=== PATIENT | female | born 1940 | race Caucasian/White ===

== ENCOUNTER 2016-12-03 12:04 | Outpatient (CLI) | payer MEDICARE, OTHER | END 2016-12-03 12:05 | disposition home or self-care (01) | LOC: LAB.R 12:04 | PROVIDERS: ATTEND Physician Assistant Medical | DX: M54.5 Low back pain (principal); R82.79 Other abnormal findings on microbiological examination of urine | CPT/HCPCS: 87086 ==

== ENCOUNTER 2016-12-10 11:01 | Outpatient (CLI) | payer MEDICARE, OTHER ==
--- NOTE | 2016-12-10 16:45 | MRI Report ---
EXAM: MRI LUMBAR SPINE WITHOUT CONTRAST EXAM DATE: 12/10/2016 11:58 AM. CLINICAL HISTORY: LOW BACK PAIN, CHRONIC. The pain radiates to posterior pelvis and both legs. COMPARISON: Radiograph lumbar spine 03/04/2015 TECHNIQUE: Multiplanar, multisequence T1-weighted and fluid-sensitive sequences of the lumbar spine f rom T12 to S1 without contrast. Other: None. FINDINGS: Spinal Cord: The conus terminates at T12-L1. No signal abnormality in the visualized spinal cord. Alignment: Normal. No scoliosis or spondylolisthesis. Bone Marrow: Five wtw-efi-ehweeea lumbar vertebral bodies are assumed. No gross fractures . A T1 and T2 hypointense lesion is seen within the right aspect of the L5 vertebral body measuring 2.3 cm (for example series 501 image 10, series 701 image 7), corresponding to the sclerotic lesion seen on the p rior radiographs. The appearance is nonspecific, may represent a bone island. Disk Levels/Facets: T12-L1: Unremarkable. L1-L2: Unremarkable. L2-L3: Unremarkable. L3-L4: Mild disk bulge. Minimal bilateral facet arthropathy. No significant central canal or neurofor aminal narrowing. L4-L5: Mild disk height loss and desiccation. Moderate diffuse disk bulge and cheq-xl-rnyfeatb bilate ral facet arthropathy and ligamentum flavum thickening. Mild central canal narrowing. Mild bilateral neuroforaminal narrowing. L5-S1: Mild disk height loss and desiccation. Moderate diffuse disk bulge and moderate bilateral face t arthropathy and ligamentum flavum thickening. Mild central canal narrowing. Mild bilateral neurofor aminal narrowing. Musculature: Normal. No edema or fatty atrophy. Other: There is a 3.8 cm exophytic T2 hyperintense lesion arising from the upper pole of the left kid anisha, likely representing a cyst. The visualized abdominopelvic cavity is otherwise unremarkable. IMPRESSION: 1. Mild multilevel degenerative spondylosis, as detailed above and summarized below. 2. A T1 and T2 hypointense lesion is seen within the right aspect of the L5 vertebral body measuring 2.3 cm (for example series 501 image 10, series 701 image 7). 3. L4-L5 level demonstrates mild central canal narrowing. Mild bilateral neuroforaminal narrowing. 4. L5-S1 level demonstrates mild central canal narrowing. Mild bilateral neuroforaminal narrowing. 5. No significant central canal or neuroforaminal narrowing at remaining lumbar levels. Comment: The following findings are so common in adults without low back pain that while we report th eir presence, they must be interpreted with caution and in the context of the clinical situation. (Re josefina Lincoln et al, Spine 2001) Prevalence of findings in patients without low back pain: Disk degeneration (any evidence): 92% Disk desiccation/T2 signal loss: 83% Disk height loss: 56% Disk bulge: 64% Disk protrusion: 32% Annular tear/high intensity zone: 38% [facility] Referring Provider Line: [phone] SITE ID: [id number]
== END 2016-12-10 11:02 | disposition home or self-care (01) ==
LOC: DI 11:01
PROVIDERS: ATTEND Physician Assistant Medical
DX: M47.896 Other spondylosis, lumbar region (principal); M51.36 Other intervertebral disc degeneration, lumbar region; M51.37 Other intervertebral disc degeneration, lumbosacral region; M47.897 Other spondylosis, lumbosacral region; M89.9 Disorder of bone, unspecified
CPT/HCPCS: 72148

== ENCOUNTER 2017-01-03 14:00 | Outpatient (CLI) | payer MEDICARE, OTHER ==
--- NOTE | 2017-01-04 00:54 | Ultrasound Report ---
EXAM: RENAL ULTRASOUND EXAM DATE: 01/03/2017 04:09 PM. CLINICAL HISTORY: RENAL CYST. Left renal cyst seen on MRI. COMPARISON: Renal ultrasound 12/22/2006. MRI lumbar spine 12/10/2016. TECHNIQUE: Real-time scanning was performed with static images obtained. FINDINGS: Right Kidney: 9.7 x 3.8 x 3.4 cm. 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 Right inferior medial exophytic simple appearing renal cyst that measures 1.5 x 1.2 cm. No hydronephrosis. Left Kidney: 8.4 x 4 x 3.6 cm. Exophytic renal cyst off the lower pole left kidney. This appears sim ple and measures 3.6 x 3.6 x 3.4 cm, measures increased compared to the prior. No hydronephrosis. Bladder: Bilateral jets seen. The prevoid bladder volume was 80.9 cc. The postvoid bladder volume was 3.5 cc. IMPRESSION: 1. Left lower pole exophytic renal cyst which appears simple, measures increased compared to the prio r renal ultrasound. 2. Right inferior medial exophytic simple appearing renal cyst measuring 1.5 cm. Duplicated collectin g system right kidney. [facility] Referring Provider Line: [phone] SITE ID: [id number]
== END 2017-01-03 14:01 | disposition home or self-care (01) ==
LOC: DI 14:00
PROVIDERS: ATTEND Physician Assistant Medical
DX: N28.1 Cyst of kidney, acquired (principal)
CPT/HCPCS: 76770

== ENCOUNTER 2017-09-10 14:42 | Outpatient (CLI) | payer MEDICARE, OTHER ==
--- NOTE | 2017-09-11 10:34 | Ultrasound Report ---
EXAM: CAROTID DOPPLER ULTRASOUND EXAM DATE: 09/10/2017 03:30 PM. CLINICAL HISTORY: Carotid artery stenosis. Right endarterectomy in 2001. COMPARISON: 05/22/2012. TECHNIQUE: Real-time sonographic vascular imaging was performed by the institution librarian through the caroti d arterial system with a linear transducer utilizing color-flow, Doppler flow and spectral analysis. Multiple canvas products sales representative static images were saved for review. FINDINGS: Small amount of smooth calcified plaque in the left greater than right common and proximal internal and external carotid arteries. RIGHT: RCCA PROX: PSV 109 CM/SEC. RCCA DIST: PSV 99 CM/SEC, EDV 21 CM/SEC. RECA: PSV 99 CM/SEC. R BULB: PSV 107 CM/SEC, EDV 20 CM/SEC, ICA/CCA RATIO 1.08. MIS PROX: PSV 77 CM/SEC, EDV 17 CM/SEC, ICA/CCA RATIO 0.78. MIS MID: PSV 87 CM/SEC, EDV 23 CM/SEC, ICA/CCA RATIO 0.88. MIS DIST: PSV 82 CM/SEC, EDV 23 CM/SEC, ICA/CCA RATIO 0.83. RVA: PSV 51 CM/SEC. RVA FLOW DIRECTION: ANTEGRADE. LEFT: LCCA PROX: PSV 91 CM/SEC. LCCA DIST: PSV 85 CM/SEC, EDV 21 CM/SEC. LECA: PSV 95 CM/SEC. L BULB: PSV 77 CM/SEC, EDV 22 CM/SEC, ICA/CCA RATIO 0.91. LICA PROX: PSV 72 CM/SEC, EDV 26 CM/SEC, ICA/CCA RATIO 0.85. LICA MID: PSV 99 CM/SEC, EDV 35 CM/SEC, ICA/CCA RATIO 1.16. LICA DIST: PSV 106 CM/SEC, EDV 29 CM/SEC, ICA/CCA RATIO 1.25. LVA: PSV 53 CM/SEC. LVA FLOW DIRECTION: ANTEGRADE. Other: None. IMPRESSION: No hemodynamically significant stenoses. Validated velocity measurements with angiographic measurements and velocity criteria are extrapolated from diameter data as defined by the Society of Radiologists in Ultrasound Consensus Conference Radi ology 2003; 229;340-346. [facility] Referring Provider Line: [phone] SITE ID: [id number]
== END 2017-09-10 14:43 | disposition home or self-care (01) ==
LOC: DI 14:42
PROVIDERS: ATTEND Physician Assistant Medical
DX: I65.29 Occlusion and stenosis of unspecified carotid artery (principal)
CPT/HCPCS: 93880

== ENCOUNTER 2018-02-28 08:42 | Outpatient (CLI) | payer MEDICARE, OTHER ==
[2018-02-28 12:32] LABS: ALBUMIN 4.1 g/dL (3.2-5.5); ALBUMIN/GLOBULIN RATIO 1.4 (1.0-2.2); ALKALINE PHOSPHATASE 36 IU/L (42-121); ALT ALANINE AMINOTRANSFERASE 17 IU/L (10-60); AST ASPARTATE AMINOTRANSFERASE 20 IU/L (10-42); BILIRUBIN,TOTAL 0.8 mg/dL (0.2-1.0); BUN - BLOOD UREA NITROGEN 25 mg/dL (6-20); CALCIUM 9.2 mg/dL (8.5-10.3); CARBON DIOXIDE - CO2 32 mmol/L (21-32); CHLORIDE 101 mmol/L (101-111); CHOL/HDL RATIO 2.9 (<4.4); CHOLESTEROL 163 mg/dL; GFR - MDRD 54 (>89); GLUCOSE 106 mg/dL (70-100); HDL CHOLESTEROL 56 mg/dL; LDL CHOLESTEROL,CALCULATED 85 mg/dL; LDL/HDL RATIO 1.5 (<4.4); SODIUM 141 mmol/L (135-145); VLDL CHOLESTEROL 22 mg/dL
== END 2018-02-28 08:43 | disposition home or self-care (01) ==
LOC: LAB.WCP 08:42
PROVIDERS: ATTEND Physician Assistant Medical
DX: E78.5 Hyperlipidemia, unspecified (principal)
CPT/HCPCS: 36415; 80053; 80061; 83721

== ENCOUNTER 2018-03-16 10:32 | Outpatient (CLI) | payer MEDICARE, OTHER ==
--- NOTE | 2018-03-17 10:20 | DEXA Report ---
Reason: BONE DESEASE Procedure Date: 03/16/2018 Accession Number: [id number] / [id number] Procedure: DEX - Dexa Spine and/or Hip CPT Code: FULL RESULT: EXAM: Dexa Spine and/or Hip DATE: 03/16/2018 11:10 AM CLINICAL HISTORY: BONE DISEASE TECHNIQUE: Dual energy x-ray absorptiometry (DXA) was performed on a [employer]. Regions measured are the AP Spine, femoral neck, and if needed forearm. COMPARISON: None. In accordance with the International Society for Clinical Densitometry (ISCD) guidelines, data from previous exams may be reanalyzed using current recommendations and techniques. This is done to allow a more accurate basis for comparison with the current study. FINDINGS: The data for the lumbar spine is as follows: BMD (g/cm/cm) T-SCORE Z-SCORE REGION L1 1.207 0.6 3.1 L2 1.187 -0.1 2.3 L3 1.266 0.5 3.0 L4 1.214 0.1 2.5 TOTAL 1.219 0.3 2.7 NOTE: All evaluable vertebrae are used for classification The data for the hip is as follows: BMD (g/cm/cm) T-SCORE Z-SCORE REGION Neck 0.787 -1.8 0.7 TOTAL 0.785 -1.8 0.6 NOTE: The femoral neck or total proximal femur, whichever is lowest, is used for classification. DXA RESULTS SUMMARY: Spine SCAN DATE AGE BMD CHANGE VS CHANGE VS PREVIOUS PREVIOUS % 2/16/2018 [age] 1[age]219 0.003 0.2 02/29/2016 [age] 1.216 * Denotes significant change at the 95% confidence level. Denotes dissimilar scan types or analysis methods. DXA RESULTS SUMMARY: Hip SCAN DATE AGE BMD CHANGE VS CHANGE VS PREVIOUS PREVIOUS % 2/16/2018 [age] 0.785 -0.005 -0.6 02[birth year]26/2016 [age] 0.790 * Denotes significant change at the 95% confidence level. Denotes dissimilar scan types or analysis methods. IMPRESSION: THE WHO CLASSIFICATION BASED ON THE INTERNATIONAL REFERENCE STANDARD IS OSTEOPENIA. THE FRACTURE RISK IS INCREASED. RECOMMENDATION: Patients with diagnosis of osteoporosis or osteopenia should have regular bone mineral density assessment. For those eligible for Medicare, routine testing is allowed once every 2 years. Testing frequency can be increased for patients who have rapidly progressing disease or for those who are receiving medical therapy to restore bone mass. COMMENT: World Health Organization (WHO) definitions for osteoporosis and osteopenia: NORMAL BMD: T-score at -1.0 or higher, fracture risk is low OSTEOPENIA BMD: T-score between -1.0 and -2.5, fracture risk is increased. OSTEOPOROSIS BMD: T-score at -2.5 or lower, fracture risk is high. National Osteoporosis Foundation recommends: 1. Obtain adequate dietary calcium (at least 1200 mg per day) and vitamin D (400-800 international units per day). 2. Participate, as appropriate, in regular weightbearing and muscle-strengthening exercise. 3. Avoid tobacco use and reduce alcohol and caffeine intake. 4. For more detailed information see the website at www.NOF.org.
== END 2018-03-16 10:33 | disposition home or self-care (01) ==
LOC: DI 10:32
PROVIDERS: ATTEND Physician Assistant Medical
DX: M85.88 Other specified disorders of bone density and structure, other site (principal)
CPT/HCPCS: 77080

== ENCOUNTER 2018-10-03 13:02 | Outpatient (CLI) | payer MEDICARE, OTHER ==
--- NOTE | 2018-10-05 14:23 | Ultrasound Report ---
Reason: COLD FEET,HYPERTENSION Procedure Date: 10/03/2018 Accession Number: [id number] / [id number] Procedure: US - Ankle Brachial Index CPT Code: FULL RESULT: EXAM: BILATERAL ANKLE/BRACHIAL INDEX EXAM DATE: 10/03/2018 01:52 PM. CLINICAL HISTORY: Cold feet, hypertension. COMPARISON: None. TECHNIQUE: A blood pressure cuff and pulse volume recording Doppler ultrasound was used to evaluate the arterial pressures in the arms and ankle. No images were acquired. FINDINGS: Brachial pressure: Right brachial artery: 127/59 mmHg Left brachial artery: 129/64 mmHg Right ankle pressures: 137/65 mmHg Dorsalis pedis artery: Monophasic low velocity/7.5 cm/s flow with tardus parvus waveform Posterior tibial artery: Normal velocity 57 cm/s biphasic waveform. Left ankle pressures: 127/53 mmHg Dorsalis pedis artery: Biphasic waveform, 26 cm/s Posterior tibial artery: Biphasic waveform 73 cm/s IMPRESSION: 1. Right ankle/brachial index: 1.07. 2. Left ankle/brachial index: 1.0. 3. Preocclusive low velocity waveform noted in the right dorsalis pedis artery. ANKLE/BRACHIAL INDEX REFERENCE STANDARDS 1.0-1.4: Normal 0.90-0.99: Borderline < 0.9: Abnormal [facility]
== END 2018-10-03 13:03 | disposition home or self-care (01) ==
LOC: DI 13:02
PROVIDERS: ATTEND Physician Assistant Medical
DX: R68.89 Other general symptoms and signs (principal); I10 Essential (primary) hypertension
CPT/HCPCS: 93922

== ENCOUNTER 2018-12-04 10:38 | Outpatient (CLI) | payer MEDICARE, OTHER ==
[2018-12-04 19:07] LABS: BASOPHILS # (AUTO) 0.1 10^3/uL (0.0-0.1); BASOPHILS % (AUTO) 0.6 %; EOSINOPHILS # (AUTO) 0.4 10^3/uL (0.0-0.7); EOSINOPHILS % (AUTO) 5.6 %; HGB - HEMOGLOBIN 13.5 g/dL (12.0-16.0); LYMPHOCYTES # (AUTO) 1.2 10^3/uL (1.5-3.5); LYMPHOCYTES % (AUTO) 15.2 %; MEAN CORPUSCULAR HEMOGLOBIN 29.4 pg (27.0-31.0); MEAN CORPUSCULAR VOLUME 88.8 fL (81.0-99.0); MEAN PLATELET VOLUME 9.3 fL (7.9-10.8); MONOCYTES # (AUTO) 0.6 10^3/uL (0.0-1.0); MONOCYTES % (AUTO) 7.6 %; NEUTROPHILS # (AUTO) 5.5 10^3/uL (1.5-6.6); PLT - PLATELET COUNT 151 10^3/uL (130-450); RED BLOOD COUNT 4.61 10^6/uL (4.20-5.40); WHITE BLOOD COUNT 7.8 x10^3/uL (4.8-10.8)
[2018-12-04 19:18] LABS: ALBUMIN/GLOBULIN RATIO 1.4 (1.0-2.2); BILIRUBIN,TOTAL 0.6 mg/dL (0.2-1.0); CALCIUM 9.1 mg/dL (8.5-10.3); TOTAL PROTEIN 6.9 g/dL (6.7-8.2)
== END 2018-12-04 10:39 | disposition home or self-care (01) ==
LOC: LAB.WCP 10:38
PROVIDERS: ATTEND Physician Assistant Medical
DX: R55 Syncope and collapse (principal)
CPT/HCPCS: 36415; 80053; 84443; 85025

== ENCOUNTER 2018-12-11 14:04 | Outpatient (CLI) | payer MEDICARE, OTHER ==
--- NOTE | 2018-12-11 16:39 | Ultrasound Report ---
Reason: CAROTID ARTERY STENOSIS,SYNCOPE AND COLLAPSE,MURMU Procedure Date: 12/11/2018 Accession Number: [id number] / [id number] Procedure: US - Carotid Doppler Complete CPT Code: FULL RESULT: EXAM: BILATERAL CAROTID AND VERTEBRAL ARTERY DUPLEX DOPPLER ULTRASOUND: EXAM DATE: 12/11/2018 03:20 PM CLINICAL HISTORY: Carotid artery stenosis, syncope and collapse. COMPARISON: CAROTID DOPPLER COMPLETE 09/10/2017 2:52 PM. TECHNIQUE: Grayscale imaging, color Doppler, and duplex spectral Doppler were used to evaluate the carotid and vertebral arteries bilaterally. Static images were obtained. FINDINGS: No significant plaque is identified in the right or left common or internal carotid arteries. Normal antegrade flow is present in bilateral vertebral arteries. VELOCITIES (cm/sec): Right CCA mid: PSV 64 cm/sec CCA dist: PSV 73 cm/sec ICA prox: PSV 72 cm/sec, EDV 16.5 cm/sec ICA mid: PSV 78 cm/sec, EDV 21 cm/sec ICA dist: PSV 76 cm/sec, EDV 21 cm/sec ECA: PSV 70 cm/sec Vert: PSV 37 cm/sec ICA/CCA: 1.0 Left CCA mid: PSV 73 cm/sec CCA dist: PSV 94 cm/sec ICA prox: PSV 85 cm/sec, EDV 24 cm/sec ICA mid: PSV 70 cm/sec, EDV 21 cm/sec ICA dist: PSV 80 cm/sec, EDV 24 cm/sec ECA: PSV 53 cm/sec Vert: PSV 55 cm/sec ICA/CCA: 0.9 ICA diameter stenosis: Right: <50% by velocity and <70% by NASCET criteria. Left: <50% by velocity and <70% by NASCET criteria. IMPRESSION: 1. No significant bilateral carotid artery plaquing. 2. In the right carotid artery there are no elevated carotid artery velocities to suggest hemodynamically significant stenosis. 3. In the left carotid artery there are no elevated carotid artery velocities to suggest hemodynamically significant stenosis. 4. Normal antegrade flow is present in bilateral vertebral arteries. 5. No significant change compared to prior exam. General Recommendations: Stenosis =50% ICA - Follow-up ultrasound 6-12 months Stenosis <50% ICA - High Risk Patient with plaque - Follow-up ultrasound 1-2 years Normal Study but High Risk Patient - Follow-up ultrasound 3-5 years Management recommendations and diagnostic criteria are based on current IAC endorsed standards in Carotid Artery Stenosis: Grayscale and Doppler Ultrasound Diagnosis. Validated velocity measurements with angiographic measurements and velocity criteria are extrapolated from diameter data as defined by the Society of Radiologists in Ultrasound Consensus Conference Radiology 2003; 229;340-346. [facility]
== END 2018-12-11 14:05 | disposition home or self-care (01) ==
LOC: DI 14:04
PROVIDERS: ATTEND Physician Assistant Medical
DX: I65.29 Occlusion and stenosis of unspecified carotid artery (principal); R55 Syncope and collapse; R01.1 Cardiac murmur, unspecified; I70.0 Atherosclerosis of aorta
CPT/HCPCS: 93306; 93880

== ENCOUNTER 2019-02-24 12:02 | Outpatient (CLI) | payer MEDICARE, OTHER ==
[2019-02-24] MEDS ORDERED: IOVERSOL 320 100 ML VIAL IVP ONE ×2 (12:42→14:36)
--- NOTE | 2019-02-25 06:04 | CT Report ---
Reason: PAROTID SWELLING Procedure Date: 02/24/2019 Accession Number: [id number] / [id number] Procedure: CT - MAXILLOFACIAL W CPT Code: FULL RESULT: EXAM: CT MAXILLOFACIAL WITH CONTRAST EXAM DATE: 02/24/2019 01:11 PM. CLINICAL HISTORY: Right parotid swelling. History of salivary duct calcium removal. COMPARISONS: None. TECHNIQUE: Thin-section axial images were acquired of the face after administration of intravenous contrast. Post-processing: Coronal and sagittal reformats. Other: None. IV contrast: 90 mL of Optiray 320. In accordance with CT protocol optimization, one or more of the following dose reduction techniques were utilized for this exam: automated exposure control, adjustment of mA and/or KV based on patient size, or use of iterative reconstructive technique. FINDINGS: Soft Tissue: No abnormal inflammation or fluid collection. No soft tissue mass. The infratemporal fossa and parapharyngeal spaces are unremarkable. Orbits: Postsurgical changes from cataract extractions are noted in the globes. Bones: No fracture or bone lesion. Temporomandibular Joints: The temporomandibular joints are symmetric and normally located. Sinuses: Normal. No mucosal thickening or fluid levels. Glands: The right parotid gland appears relatively normal in bulk but may be slightly atrophic compared to the contralateral side. No periparotid fat stranding is seen in either side to suggest acute inflammation. The submandibular glands are symmetric in appearance. Other: Appropriate intravascular enhancement is noted without evidence of cavernous sinus thrombosis. Moderate intracranial atherosclerosis is present. No acute abnormality is seen in the visualized brain parenchyma. IMPRESSION: 1. The parotid glands are asymmetric in size with the left side larger than the right. This may be related to left parotid hypertrophy or a mildly atrophic right parotid gland. However, no periparotid fat stranding is seen to suggest acute inflammation or infection. 2. No other acute abnormality is seen in the remaining soft tissues of the face. [facility]
== END 2019-02-24 12:03 | disposition home or self-care (01) ==
LOC: LAB 12:02
PROVIDERS: ATTEND Family Medicine
DX: R22.1 Localized swelling, mass and lump, neck (principal)
CPT/HCPCS: 36415; 70487; 82565; Q9967

== ENCOUNTER 2019-12-25 14:39 | Outpatient (CLI) | payer MEDICARE, OTHER ==
--- NOTE | 2019-12-25 17:48 | Ultrasound Report ---
PROCEDURE: Head or Neck Soft Tissue INDICATIONS: THYROID NODULE TECHNIQUE: Real-time scanning was performed of the thyroid gland, with image documentation. COMPARISON: Thyroid ultrasound , 12/06/2013, CT 08/23/2014 FINDINGS: Right: Thyroid lobe measures 5.2 x 1.3 x 1.5 cm, and is homogeneous in echotexture. Left: Thyroid lobe measures 5.2 x 1.4 x 1.6 cm, and is homogenous in echotexture. Isthmus: 2 mm thick. Nodule number: One Location: Right inferior Size: 1.5 x 1.0 x 1.3 cm compared to 1.7 x 1.0 x 1.5 cm. Composition: Cystic Echogenicity: Hypoechoic Shape: wider than tall. Margins: Smooth Echogenic foci: None Total points: 3 ACR TI-RADS category: 3 Nodule number: Two Location: Left mid Size: 1.5 x 0.8 x 0.9 compared to 1.2 x 0.6 x 0.9 cm. Composition: Solid Echogenicity: Hypoechoic Shape: wider than tall. Margins: Smooth Echogenic foci: Macrocalcifications Total points: 5 ACR TI-RADS category: 4 IMPRESSION: 1. Right lower lobe lesion is considered category 3 and is stable compared to prior exam. Given size, no additional follow-up is recommended as noted below. 2. Left thyroid lesion demonstrates mild interval increase in size compared to prior exam. FNA is rec ommended for further evaluation. ACR TI-RADS definitions and recommendations: TI-RADS 1 (benign): 0 points. FNA not needed. TI-RADS 2 (not suspicious): 2 points. FNA not needed. TI-RADS 3 (mildly suspicious): 3 points. ? FNA if 2.5 cm or larger, follow up if 1.5 cm or larger (at 1, 3, and 5 years). TI-RADS 4 (moderately suspicious): 4-6 points. ? FNA if 1.5 cm or larger, follow up if 1 cm or larger (at 1, 2, 3, and 5 years). TI-RADS 5 (highly suspicious): 7 points or more. ? FNA if 1 cm or larger, follow up if 0.5 cm or larger (every year for 5 years). Reviewed by: Monica Bergeron MD on 12/25/2019 5:47 PM PDT Approved by: Monica Bergeron MD on 12/25/2019 5:47 PM PDT Station ID: [id number]
== END 2019-12-25 14:40 | disposition home or self-care (01) ==
LOC: DI 14:39
PROVIDERS: ATTEND Physician Assistant Medical
DX: E04.2 Nontoxic multinodular goiter (principal)
CPT/HCPCS: 76536

== ENCOUNTER 2020-06-19 08:00 | Outpatient (CLI) | payer MEDICARE, OTHER ==
[2020-06-19 12:51] LABS: ALBUMIN 4.4 g/dL (3.2-5.5); ALBUMIN/GLOBULIN RATIO 1.5 (1.0-2.2); ALKALINE PHOSPHATASE 42 IU/L (42-121); ALT ALANINE AMINOTRANSFERASE 19 IU/L (10-60); AST ASPARTATE AMINOTRANSFERASE 20 IU/L (10-42); BILIRUBIN,TOTAL 0.7 mg/dL (0.2-1.0); BUN - BLOOD UREA NITROGEN 22 mg/dL (6-20); CARBON DIOXIDE - CO2 31 mmol/L (21-32); CHLORIDE 101 mmol/L (101-111); CHOL/HDL RATIO 3.1 (<4.4); CHOLESTEROL 177 mg/dL; CREATININE 0.9 mg/dL (0.4-1.0); GLUCOSE 106 mg/dL (70-100); HDL CHOLESTEROL 58 mg/dL; LDL CHOLESTEROL,CALCULATED 94 mg/dL; LDL/HDL RATIO 1.6 (<4.4); SODIUM 143 mmol/L (135-145); TOTAL PROTEIN 7.3 g/dL (6.7-8.2); VLDL CHOLESTEROL 25 mg/dL
== END 2020-06-19 23:59 | disposition home or self-care (01) ==
LOC: LAB.WCP 08:00
PROVIDERS: ATTEND Physician Assistant Medical
DX: E78.5 Hyperlipidemia, unspecified (principal)
CPT/HCPCS: 36415; 80053; 80061; 83721

== ENCOUNTER 2020-07-11 08:00 | Outpatient (CLI) | payer MEDICARE, OTHER ==
[2020-07-11 18:39] LABS: CALCIUM 9.3 mg/dL (8.5-10.3); CREATININE 0.9 mg/dL (0.4-1.0)
== END 2020-07-11 23:59 | disposition home or self-care (01) ==
LOC: LAB.WCP 08:00
PROVIDERS: ATTEND Physician Assistant Medical
DX: E87.6 Hypokalemia (principal)
CPT/HCPCS: 36415; 80048

== ENCOUNTER 2020-07-27 07:00 | Outpatient (CLI) | payer MEDICARE, OTHER ==
--- NOTE | 2020-07-27 12:56 | XRAY Report ---
PROCEDURE: Cervical Spine 2 View INDICATIONS: ARTHRITIS, CERVICAL SPINE TECHNIQUE: 3 view(s) of the cervical spine were acquired. COMPARISON: None. FINDINGS: Bones: No fractures or dislocations to the T1 level. The lateral masses of C1 appear intact on the odontoid view. No suspicious bony lesions. Vertebral body heights are maintained. There is complete intervertebral disc space also C5-C6 with endplate degenerative changes. There is mild straightening of normal cervical lordosis. There is minimal anterolisthesis of C7 on T1. There is facet arthropath y at this level. Soft tissues: Postsurgical changes of right carotid endarterectomy. Lung apices are clear. Basilar op acifications within the aortic arch. Prevertebral soft tissues are normal. IMPRESSION: Cervical spondylopathy centered at C5-C6 with complete intervertebral disc space loss. I n addition there is grade 1 anterolisthesis of C7 on T1 with facet arthropathy. Reviewed by: Josh Herr DO on 07/27/2020 11:54 AM MEL[facility] Approved by: Josh Herr DO on 07/27/2020 11:54 AM [facility] Station ID: [id number]
== END 2020-07-27 23:59 | disposition home or self-care (01) ==
LOC: DI.N 07:00
PROVIDERS: ATTEND Family Medicine
DX: M46.92 Unspecified inflammatory spondylopathy, cervical region (principal)

== ENCOUNTER 2020-12-22 08:00 | Outpatient (CLI) | payer MEDICARE, OTHER ==
[2020-12-22 12:19] LABS: ALBUMIN/GLOBULIN RATIO 1.4 (1.0-2.2); ALKALINE PHOSPHATASE 43 IU/L (42-121); ALT ALANINE AMINOTRANSFERASE 16 IU/L (10-60); AST ASPARTATE AMINOTRANSFERASE 16 IU/L (10-42); BILIRUBIN,TOTAL 0.6 mg/dL (0.2-1.0); BUN - BLOOD UREA NITROGEN 21 mg/dL (6-20); CARBON DIOXIDE - CO2 30 mmol/L (21-32); CHLORIDE 101 mmol/L (101-111); CHOLESTEROL 150 mg/dL; CREATININE 0.9 mg/dL (0.4-1.0); GFR - MDRD 60 (>89); GLUCOSE 116 mg/dL (70-100); HDL CHOLESTEROL 50 mg/dL; LDL CHOLESTEROL,CALCULATED 85 mg/dL; LDL/HDL RATIO 1.7 (<4.4); POTASSIUM 3.7 mmol/L (3.5-5.0); SODIUM 142 mmol/L (135-145); TOTAL PROTEIN 6.9 g/dL (6.7-8.2); TRIGLYCERIDES 77 mg/dL; VLDL CHOLESTEROL 15 mg/dL
== END 2020-12-22 23:59 | disposition home or self-care (01) ==
LOC: LAB.WCP 08:00
PROVIDERS: ATTEND Physician Assistant Medical
DX: E78.5 Hyperlipidemia, unspecified (principal)
CPT/HCPCS: 36415; 80053; 80061; 83721

== ENCOUNTER 2021-08-05 09:17 | Outpatient (CLI) | payer MEDICARE, OTHER ==
[2021-08-05 12:45] LABS: ALBUMIN 4.2 g/dL (3.2-5.5); ALBUMIN/GLOBULIN RATIO 1.4 (1.0-2.2); ALKALINE PHOSPHATASE 45 IU/L (42-121); ALT ALANINE AMINOTRANSFERASE 20 IU/L (10-60); AST ASPARTATE AMINOTRANSFERASE 21 IU/L (10-42); BILIRUBIN,TOTAL 0.5 mg/dL (0.2-1.0); BUN - BLOOD UREA NITROGEN 19 mg/dL (6-20); CALCIUM 9.2 mg/dL (8.5-10.3); CARBON DIOXIDE - CO2 31 mmol/L (21-32); CHLORIDE 99 mmol/L (101-111); CHOL/HDL RATIO 2.8 (<4.4); CHOLESTEROL 164 mg/dL; CREATININE 0.9 mg/dL (0.4-1.0); GFR - MDRD 60 (>89); GLUCOSE 102 mg/dL (70-100); HDL CHOLESTEROL 59 mg/dL; LDL CHOLESTEROL,CALCULATED 79 mg/dL; LDL/HDL RATIO 1.3 (<4.4); POTASSIUM 3.4 mmol/L (3.5-5.0); SODIUM 140 mmol/L (135-145); TOTAL PROTEIN 7.2 g/dL (6.7-8.2); TRIGLYCERIDES 129 mg/dL; VLDL CHOLESTEROL 26 mg/dL
== END 2021-08-05 09:18 | disposition home or self-care (01) ==
LOC: LAB.N 09:17
PROVIDERS: ATTEND Physician Assistant Medical
DX: E78.5 Hyperlipidemia, unspecified (principal)
CPT/HCPCS: 36415; 80053; 80061; 83721

== ENCOUNTER 2021-08-11 08:00 | Outpatient (CLI) | payer MEDICARE, OTHER ==
[2021-08-11 20:34] LABS: BACTERIAL VAGINOSIS DNA NEGATIVE (NEGATIVE); CANDIDA KRUSEI DNA NEGATIVE (NEGATIVE); TRICHOMONAS VAGINALIS DNA NEGATIVE (NEGATIVE)
[2021-08-11 20:35] LABS: CANDIDA GLABRATA DNA NEGATIVE (NEGATIVE); CANDIDA GROUP DNA NEGATIVE (NEGATIVE)
== END 2021-08-11 23:59 | disposition home or self-care (01) ==
LOC: LAB.WCP 08:00
PROVIDERS: ATTEND Physician Assistant Medical
DX: N76.0 Acute vaginitis (principal)
CPT/HCPCS: 87661; 87801

== ENCOUNTER 2021-08-29 11:10 | Outpatient (CLI) | payer MEDICARE, OTHER ==
[2021-08-29 20:19] LABS: BACTERIAL VAGINOSIS DNA NEGATIVE (NEGATIVE); CANDIDA GLABRATA DNA NEGATIVE (NEGATIVE); CANDIDA GROUP DNA NEGATIVE (NEGATIVE); CANDIDA KRUSEI DNA NEGATIVE (NEGATIVE); TRICHOMONAS VAGINALIS DNA NEGATIVE (NEGATIVE)
== END 2021-08-29 23:59 | disposition home or self-care (01) ==
LOC: LAB.N 11:10
PROVIDERS: ATTEND Physician Assistant
DX: R39.9 Unspecified symptoms and signs involving the genitourinary system (principal)
CPT/HCPCS: 87661; 87801

== ENCOUNTER 2022-02-25 15:00 | Outpatient (CLI) | payer MEDICARE, OTHER ==
--- NOTE | 2022-02-25 17:24 | Ultrasound Report ---
PROCEDURE: Pelvic w/Transvaginal, ultrasound INDICATIONS: MASS OF VAGINA TECHNIQUE: Real-time scanning was performed of the pelvic organs, with image documentation. Additional endovagi nal scanning was necessary due to incomplete visualization of the adnexal and endometrial structures by transabdominal scanning. COMPARISON: None. FINDINGS: Uterus: Uterus is retroverted and normal in size at 4.1 x 2.6 x 4.7 cm. The myometrium is homogeneo us, but shows coarse peripheral calcifications.. The endometrium measures 0.8 mm mm in combined thic kness. No ultrasound evidence of vaginal polyp. Inferior cervix and proximal vaginal cuff not well demonstra heike. Ovaries: The right ovary measures 1.7 x 0.7 x 0.9 cm, with a calculated ovarian volume of 0.6 cc. T he left ovary measures 1.7 x 0.8 x 1.0 cm, with a calculated ovarian volume of 0.7 cc. The ovaries h ave a normal sonographic appearance. Less than 12 follicles can be seen in each ovary. No adnexal m asses are seen. Other: No pathologic free abdominal or pelvic fluid. IMPRESSION: Chronic appearing uterine calcifications present. No ultrasound evidence of vaginal polyp, however, the inferior cervix and proximal vaginal cuff is no t well demonstrated. Consider follow-up saline hysterosonography Reviewed by: Gui Mitchell MD on 02/25/2022 4:23 PM NIGEL Approved by: Gui Mitchell MD on 02/25/2022 4:23 PM [facility] Station ID: [id number]
== END 2022-02-25 15:01 | disposition home or self-care (01) ==
LOC: DI 15:00
PROVIDERS: ATTEND Urology
DX: N89.8 Other specified noninflammatory disorders of vagina (principal)

== ENCOUNTER 2022-05-03 11:55 | Outpatient (CLI) | payer MEDICARE, OTHER ==
--- NOTE | 2022-05-03 15:28 | XRAY Report ---
PROCEDURE: Forearm RT INDICATIONS: SKIN MASS ON R ARM TECHNIQUE: 2 views of the forearm were acquired. COMPARISON: None FINDINGS: Bones: No fractures or dislocations. No suspicious bony lesions. Soft tissues: There are tiny calcifications around the radiocapitellar joint at the elbow. No other suspicious soft tissue calcifications or masses. Mild vascular calcification. No radiodense foreign bodies. IMPRESSION: 1. No underlying fracture, foreign body, or visible abnormality corresponds to skin lesion. 2. 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 Reviewed by: Ila Anaya MD on 05/03/2022 3:27 PM PDT Approved by: Ila Anaya MD on 05/03/2022 3:27 PM PDT Station ID: [id number]
== END 2022-05-03 11:56 | disposition home or self-care (01) ==
LOC: DI.N 11:55
PROVIDERS: ATTEND Registered Nurse
DX: R22.31 Localized swelling, mass and lump, right upper limb (principal)

== ENCOUNTER 2022-05-05 12:38 | Outpatient (CLI) | payer MEDICARE, OTHER ==
--- NOTE | 2022-05-05 14:04 | Ultrasound Report ---
PROCEDURE: Ext Limited Non Vascular INDICATIONS: RIGHT ARM MASS TECHNIQUE: Real-time scanning was performed of the right forearm, with image documentation. COMPARISON: Forearm radiograph dated 05/03/2022. FINDINGS: Focused ultrasound examination of right forearm at patient's reported area of palpable lum p shows a heterogeneously hypoechoic oval structure within subcutaneous soft tissue measures up to 1. 8 x 0.3 x 1.4 cm in size. No internal vascularity is seen. IMPRESSION: Finding may represent a 1.8 x 0.3 x 1.4 cm complex cyst versus cystic soft tissue neopla sm in ulnar aspect of distal right forearm subcutaneous soft tissue. Clinical correlation and follow- up is recommended. Reviewed by: Jaren Aguayo MD on 05/05/2022 2:03 PM PDT Approved by: Jaren Aguayo MD on 05/05/2022 2:03 PM PDT Station ID: [id number]
== END 2022-05-05 12:39 | disposition home or self-care (01) ==
LOC: DI 12:38
PROVIDERS: ATTEND Registered Nurse
DX: R22.31 Localized swelling, mass and lump, right upper limb (principal)

== ENCOUNTER 2022-07-13 10:12 | Outpatient (CLI) | payer MEDICARE, OTHER ==
[2022-07-13 11:40] LABS: BASOPHILS # (AUTO) 0.1 10^3/uL (0.0-0.1); BASOPHILS % (AUTO) 0.8 %; EOSINOPHILS # (AUTO) 0.9 10^3/uL (0.0-0.7); EOSINOPHILS % (AUTO) 11.9 %; HCT - HEMATOCRIT 42.6 % (37.0-47.0); HGB - HEMOGLOBIN 13.5 g/dL (12.0-16.0); LYMPHOCYTES # (AUTO) 1.1 10^3/uL (1.5-3.5); LYMPHOCYTES % (AUTO) 14.8 %; MEAN CORPUSCULAR HEMOGLOBIN 28.5 pg (27.0-31.0); MEAN CORPUSCULAR HGB CONC 31.7 g/dL (32.0-36.0); MEAN CORPUSCULAR VOLUME 90.1 fL (81.0-99.0); MEAN PLATELET VOLUME 10.8 fL (7.9-10.8); MONOCYTES # (AUTO) 0.6 10^3/uL (0.0-1.0); MONOCYTES % (AUTO) 7.3 %; NEUTROPHILS # (AUTO) 4.9 10^3/uL (1.5-6.6); NEUTROPHILS % (AUTO) 64.8 %; PLT - PLATELET COUNT 163 10^3/uL (130-450); RED BLOOD COUNT 4.73 10^6/uL (4.20-5.40); RED CELL DISTRIBUTION WIDTH 13.2 % (12.0-15.0); WHITE BLOOD COUNT 7.6 x10^3/uL (4.8-10.8)
[2022-07-13 12:20] LABS: ALBUMIN 4.1 g/dL (3.2-5.5); ALBUMIN/GLOBULIN RATIO 1.4 (1.0-2.2); ALKALINE PHOSPHATASE 45 IU/L (42-121); ALT ALANINE AMINOTRANSFERASE 18 IU/L (10-60); AST ASPARTATE AMINOTRANSFERASE 19 IU/L (10-42); BUN - BLOOD UREA NITROGEN 24 mg/dL (6-20); CALCIUM 9.1 mg/dL (8.5-10.3); CARBON DIOXIDE - CO2 33 mmol/L (21-32); CHLORIDE 99 mmol/L (101-111); CHOL/HDL RATIO 3.3 (<4.4); CHOLESTEROL 195 mg/dL; CREATININE 1.1 mg/dL (0.4-1.0); GFR - MDRD 48 (>89); GLUCOSE 115 mg/dL (70-100); HDL CHOLESTEROL 59 mg/dL; LDL CHOLESTEROL,CALCULATED 109 mg/dL; LDL/HDL RATIO 1.8 (<4.4); POTASSIUM 3.8 mmol/L (3.5-5.0); SODIUM 141 mmol/L (135-145); TOTAL PROTEIN 7.1 g/dL (6.7-8.2); TRIGLYCERIDES 133 mg/dL; VLDL CHOLESTEROL 27 mg/dL
[2022-07-13 12:27] LABS: ESTIMATED AVERAGE GLUCOSE 120 mg/dL (70-100); HEMOGLOBIN A1c% 5.8 % (4.27-6.07)
== END 2022-07-13 10:13 | disposition home or self-care (01) ==
LOC: LAB.N 10:12
PROVIDERS: ATTEND Physician Assistant Medical
DX: I10 Essential (primary) hypertension (principal); E78.5 Hyperlipidemia, unspecified; R73.9 Hyperglycemia, unspecified; E04.1 Nontoxic single thyroid nodule
CPT/HCPCS: 36415; 80053; 80061; 83036; 83721; 84443; 85025

== ENCOUNTER 2022-09-13 11:07 | Outpatient (CLI) | payer MEDICARE, OTHER ==
[2022-09-13 18:03] LABS: CALCIUM 9.2 mg/dL (8.5-10.3); CREATININE 0.9 mg/dL (0.4-1.0); POTASSIUM 3.8 mmol/L (3.5-5.0)
== END 2022-09-13 11:08 | disposition home or self-care (01) ==
LOC: LAB.N 11:07
PROVIDERS: ATTEND Physician Assistant Medical
DX: N18.9 Chronic kidney disease, unspecified (principal)
CPT/HCPCS: 36415; 80048

== ENCOUNTER 2022-10-25 12:25 | Outpatient (CLI) | payer MEDICARE, OTHER ==
--- NOTE | 2022-10-25 17:46 | XRAY Report ---
PROCEDURE: Lumbar Spine 2 View INDICATIONS: STRAIN OF MUSCLE FASCIA AND TENDON OF LOWER BACK TECHNIQUE: 3 views of the lumbar spine were acquired. COMPARISON: None. FINDINGS: Bones: 5 ups-dzu-phojwkc vertebrae are present. There is normal bony alignment. No vertebral body compression fractures. No suspicious bony lesions. Disc space narrowing and hypertrophic facet join ts noted particularly in the lower lumbar spine Soft tissues: Overlying bowel gas pattern is normal. No suspicious soft tissue calcifications. 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
== END 2022-10-25 12:26 | disposition home or self-care (01) ==
LOC: DI 12:25
PROVIDERS: ATTEND Physician Assistant
DX: M47.816 Spondylosis without myelopathy or radiculopathy, lumbar region (principal); M51.36 Other intervertebral disc degeneration, lumbar region

== ENCOUNTER 2022-10-26 20:14 | Outpatient (CLI) | payer MEDICARE, OTHER | END 2022-10-26 20:15 | disposition critical access hospital (66) | LOC: EMS 20:14 | DX: M54.50 Low back pain, unspecified (principal); X50.9XXA Other and unspecified overexertion or strenuous movements or postures, initial encounter; Y93.E9 Activity, other interior property and clothing maintenance; Y92.009 Unspecified place in unspecified non-institutional (private) residence as the place of occurrence of the external cause | CPT/HCPCS: A0425; A0427 ==

== ENCOUNTER 2022-10-26 20:35 | Emergency (ER) | payer MEDICARE, OTHER ==
--- NOTE | 2022-10-26 20:57 | ED Physician Documentation ---
PD HPI BACK PAIN - Stated complaint Stated Complaint: R LOWER BACK PX - Chief complaint Chief Complaint: Back Pain - History obtained from History obtained from: Patient - Additional information Additional information: This is a very healthy 81-year-old woman who has had right-sided low back pain starting about a week ago after a day of heavy moving around the house. It is generally getting worse. It is much worse with motion. She has no history of back pain. She denies pedal edema or, calf pain, radiation of the pain. She denies weakness, numbness, tingling, saddle anesthesia, or fevers. She has chronic urinary incontinence which is unchanged. She went to the clinic yesterday and had x-rays done showing degenerative disease. She received a prescription for methocarbamol which was ineffective. PD PAST MEDICAL HISTORY - Past Medical History Cardiovascular: None, Hypertension Respiratory: None Endocrine/Autoimmune: None GI: None, GERD : None HEENT: None Psych: None, Anxiety Musculoskeletal: Osteopenia Derm: None - Past Surgical History General: Cholecystectomy Ortho: Other HEENT: Cataracts, Tonsil/Adenoidectomy - Present Medications Home Medications: Ambulatory Orders Medication Instructions Recorded Confirmed Ascorbate Calcium [Vitamin C] 500 mg PO DAILY 12/23/14 04/29/16 Beta-Carotene [Beta Carotene] 25,000 unit PO ONCE 12/23/14 04/29/16 Calcium Carbonate/Vitamin D3 1 tab PO DAILY 12/23/14 04/29/16 [Calcium 500 + Vit D 200 Caplet] Cholecalciferol (Vitamin D3) 1,000 unit PO DAILY 12/23/14 04/29/16 [Vitamin D] Cyanocobalamin (Vitamin B-12) 1,000 mcg PO DAILY 12/23/14 04/29/16 [Vitamin B-12] Cyclobenzaprine [Flexeril] 10 mg PO DAILY PRN 12/23/14 04/29/16 Iron 65 mg PO DAILY 12/23/14 01/25/16 Potassium Gluconate [Potassium] 550 mg PO ONCE 12/23/14 04/29/16 Simvastatin 20 mg PO QPM 12/23/14 04/29/16 Triamterene/Hydrochlorothiazid 1 tab PO DAILY 12/23/14 04/29/16 [Maxzide 37.5 mg-25 mg Tablet] Vitamin A 8,000 unit PO DAILY 12/23/14 04/29/16 Vitamin E 400 unit PO DAILY 12/23/14 04/29/16 ALPRAZolam [Alprazolam] 0.5 mg PO DAILY PRN 04/29/16 04/29/16 Latanoprost [Xalatan] 1 drop EACHEYE DAILY 04/29/16 04/29/16 Omeprazole 20 mg PO DAILY 04/29/16 04/29/16 Timolol 0.25% Ophth Drops 1 drop EACHEYE BID 04/29/16 04/29/16 [Timoptic 0.25% Ophth Drops] HYDROcod/ACETAM 5/325 [Goltry 5/325] 1 - 2 tab PO Q6H PRN #15 tablet 10/26/22 - Allergies Allergies/Adverse Reactions: Allergies Allergy/AdvReac Type Severity Reaction Status Date / Time No Known Drug Allergies Allergy Verified 01/25/16 17:43 - Social History Does the pt smoke?: No Smoking Status: Never smoker Does the pt drink ETOH?: No Does the pt have substance abuse?: No - Immunizations Immunizations are current?: Yes PD ED PE NORMAL - Vitals Vital signs reviewed: Yes - General General: Alert and oriented X 3, No acute distress (But winces with motion) - Abdomen Abdomen: Non tender - Back Back: No spinal TTP, Other (I am unable to recreate her tenderness with palpation of lumbar spine or paraspinal muscles.) - Extremities Extremities: Other (The patient has equal and normal Achilles and patellar reflexes bilaterally. Normal sensation in all areas of the legs. Patient denies saddle anesthesia. Normal strength in flexion-extension at the ankles, knees, and flexion of the hips.) - Neuro Neuro: Alert and oriented X 3, Normal speech Results - Vitals Vitals: Vital Signs - 24 hr 10/26/22 10/27/22 20:49 00:19 Temperature 37.0 C Heart Rate 98 84 Respiratory 16 17 Rate Blood Pressure 113/83 H 120/71 O2 Saturation 95 95 Oxygen O2 Source Room air - Labs Labs: Laboratory Tests 10/26/22 10/26/22 21:05 21:05 WBC 12.0 H RBC 3.65 L Hgb 10.7 L Hct 32.3 L MCV 88.5 MCH 29.3 MCHC 33.1 RDW 12.6 Plt Count 137 MPV 9.3 Neut # (Auto) 10.0 H Lymph # (Auto) 0.7 L Loving # (Auto) 1.2 H Eos # (Auto) 0.0 Baso # (Auto) 0.0 Absolute Nucleated RBC 0.00 Nucleated RBC % 0.0 Sodium 136 Potassium 3.0 L Chloride 98 L Carbon Dioxide 27 Anion Gap 11.0 BUN 18 Creatinine 0.8 Estimated GFR (MDRD) 69 L Glucose 138 H Calcium 8.1 L PD Medical Decision Making - ED course ED course: 81-year-old woman presents with atraumatic right low back pain of for the last week. She is nonfunctional because of it. She went to the clinic and x-rays were done and she was prescribed a muscle relaxer which was not helpful. The pain seems musculoskeletal in the sense that is really much worse when she moves. That said given her advanced age, advanced imaging will be performed. She was treated in the emergency department with 1 mg of IV Dilaudid and 15 mg of IV Toradol. After which she became nauseous but her range of motion was better. CT imaging of the lumbar spine was done and showing multilevel degenerative changes with spinal stenosis and multilevel neuroforaminal narrowing. No evidence of malignancy. Pain much better and able to move p that but developed N/V from meds. Departure - Departure Disposition: 01 Home, Self Care Clinical Impression: Back pain Condition: Good Record reviewed to determine appropriate education?: Yes Instructions: ED Neck Back Pain General Prescriptions: HYDROcod/ACETAM 5/325 [Goltry 5/325] 1 - 2 tab PO Q6H PRN #15 tablet PRN Reason: Pain Comments: Follow-up with your primary care physician, next available appointment. Consi zbigniew referral for physical therapy. Return if worse. I sent your prescription electronically to [facility] in [place]. I am prescribing a short course of narcotic pain medication for you. These are potentially dangerous and addictive medications that should be used carefully. These medications may constipate you. Take an cuaf-puj-kritort stool softener (docusate) twice daily with plenty of water while taking these medications. If you go 24 hours without a bowel movement, take [id number] miralax, per package instructions. Do not drink or drive while taking these medications. If you received narcotic or sedating medications while in the emergency department, do not drive for 24 hours. Store this medication in a safe, secure place and out of reach of children. It is a violation of federal law to give or sell this medication to another person or to use in a manner other than prescribed. The ED will not refill narcotic prescriptions, including prescriptions lost or stolen. To dispose of unwanted medications: 1. [facility] at [address] in [place] has a medication drop box. They accept prescription medications (in pill form) Tuesday through Tuesday 9:00 a.m. to 5:00 p.m. 2. The [facility] accepts prescription medications (in pill form only) for disposal year round. Call for more informatio n. 3. Contact the [facility] for the next [facility] sponsored prescription drug collection event. , [phone], or [phone]; Note that many narcotic pain relievers also contain Tylenol/acetaminophen. Please ensure that your total dose of acetaminophen from all sources does not exceed 3 g (3000 mg) per day. Discharge Date/Time: 10/27/22 00:24
[2022-10-26] MEDS ORDERED: HYDROmorphone 1 MG/ML CARPUJECT IVP STA (21:00)
[2022-10-26] MEDS ORDERED: KETOROLAC 15 MG/ML VIAL IVP STA (21:00)
[2022-10-26 21:10] LABS: BASOPHILS % (AUTO) 0.2 %; EOSINOPHILS % (AUTO) 0.3 %; HCT - HEMATOCRIT 32.3 % (37.0-47.0); HGB - HEMOGLOBIN 10.7 g/dL (12.0-16.0); LYMPHOCYTES # (AUTO) 0.7 10^3/uL (1.5-3.5); LYMPHOCYTES % (AUTO) 5.9 %; MEAN CORPUSCULAR HEMOGLOBIN 29.3 pg (27.0-31.0); MEAN CORPUSCULAR HGB CONC 33.1 g/dL (32.0-36.0); MEAN CORPUSCULAR VOLUME 88.5 fL (81.0-99.0); MEAN PLATELET VOLUME 9.3 fL (7.9-10.8); MONOCYTES # (AUTO) 1.2 10^3/uL (0.0-1.0); PLT - PLATELET COUNT 137 10^3/uL (130-450); RED BLOOD COUNT 3.65 10^6/uL (4.20-5.40); RED CELL DISTRIBUTION WIDTH 12.6 % (12.0-15.0)
[2022-10-26 21:18] LABS: CALCIUM 8.1 mg/dL (8.5-10.3); CREATININE 0.8 mg/dL (0.4-1.0)
--- NOTE | 2022-10-26 22:30 | CT Report ---
PROCEDURE: LUMBAR SPINE WO INDICATIONS: low back pain TECHNIQUE: Noncontrast 3 mm thick sections acquired from the T12 level to the sacrum. Sagittal and coronal refo rmats were constructed. For radiation dose reduction, the following was used: automated exposure co ntrol, adjustment of mA and/or kV according to patient size. COMPARISON: None. FINDINGS: Image quality: Excellent. Bones: There is minimal anterolisthesis at L5-S1.. No acute vertebral body compression fractures. No suspicious lytic or blastic bony lesions. Central spinal caliber is of normal overall caliber. N o pars defects. T12-L1: Normal in appearance. L1-L2: There is a small broad-based disc bulge and ligamentum hypertrophy. Findings contribute to mil d spinal canal narrowing with mild to moderate bilateral neuroforaminal narrowing. L2-L3: Small broad-based disc bulge with mild facet arthropathy as well as ligamentum hypertrophy and calcification. There is associated moderate spinal canal narrowing with mild to moderate bilateral n euroforaminal narrowing. L3-L4: Small disc bulge. There is mild facet arthropathy as well as ligamentum flavum hypertrophy and calcification. There is associated moderate spinal canal narrowing with mild to moderate bilateral n euroforaminal narrowing. L4-L5: Small broad-based disc bulge with moderate facet arthropathy as well as ligamentum hypertrophy and calcification. The findings contribute to severe spinal canal narrowing with mild to moderate bi lateral neuroforaminal narrowing. L5-S1: Small broad-based disc bulge with mild facet arthropathy. No spinal canal narrowing. There is mild to moderate bilateral neuroforaminal narrowing. Soft tissues: No retroperitoneal masses or hematomas. Visualized aorta is normal in caliber. IMPRESSION: 1. No fracture or traumatic subluxation. 2. 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 Severe spinal canal narr owing demonstrated at L4-5 as well as moderate narrowing at L2-3 and L3-L4. 3. Multilevel neuroforaminal narrowing including moderate narrowing bilaterally at L2-L3 and mild to moderate narrowing bilaterally at L3-L4, L4-5, and L5-S1. Reviewed by: Claudio Mckoy MD on 10/26/2022 10:28 PM PDT Approved by: Claudio Mckoy MD on 10/26/2022 10:28 PM PDT Station ID: [id number]
[2022-10-26] MEDS ORDERED: HYDROcod/ACET 5/325 Prepack 4 PO STA (22:43)
[2022-10-26] MEDS ORDERED: ONDANSETRON 4 MG/2 ML VIAL IVP STA (22:43)
[2022-10-26] MEDS ORDERED: ONDANSETRON ODT 4 MG Prepack 2 TL STA (22:43)
[2022-10-27 00:24] VITALS: BP 120/71
== END 2022-10-27 00:24 | disposition home or self-care (01) ==
LOC: EDUNIT# → ED 20:35
DX: M47.816 Spondylosis without myelopathy or radiculopathy, lumbar region (principal); M48.061 Spinal stenosis, lumbar region without neurogenic claudication
CPT/HCPCS: 36415; 72131; 80048; 85025; 96374; 96375; 99283; 99284; J1170

== ENCOUNTER 2023-02-09 08:41 | Outpatient (CLI) | payer MEDICARE, OTHER ==
[2023-02-09 12:58] LABS: ALBUMIN 4.1 g/dL (3.2-5.5); ALBUMIN/GLOBULIN RATIO 1.6 (1.0-2.2); ALKALINE PHOSPHATASE 40 IU/L (42-121); ALT ALANINE AMINOTRANSFERASE 13 IU/L (10-60); AST ASPARTATE AMINOTRANSFERASE 14 IU/L (10-42); BILIRUBIN,TOTAL 0.5 mg/dL (0.2-1.0); BUN - BLOOD UREA NITROGEN 24 mg/dL (6-20); CALCIUM 9.3 mg/dL (8.5-10.3); CARBON DIOXIDE - CO2 33 mmol/L (21-32); CHLORIDE 103 mmol/L (101-111); CHOL/HDL RATIO 2.9 (<4.4); CHOLESTEROL 166 mg/dL; GFR - MDRD 53 (>89); GLUCOSE 104 mg/dL (74-104); HDL CHOLESTEROL 58 mg/dL; LDL CHOLESTEROL,CALCULATED 88 mg/dL; LDL/HDL RATIO 1.5 (<4.4); POTASSIUM 3.4 mmol/L (3.5-4.5); SODIUM 141 mmol/L (135-145); TOTAL PROTEIN 6.7 g/dL (6.4-8.9); TRIGLYCERIDES 98 mg/dL (48-352); VLDL CHOLESTEROL 20 mg/dL
== END 2023-02-09 08:42 | disposition home or self-care (01) ==
LOC: LAB.N 08:41
PROVIDERS: ATTEND Physician Assistant Medical
DX: E78.5 Hyperlipidemia, unspecified (principal)
CPT/HCPCS: 36415; 80053; 80061; 83721

== ENCOUNTER 2023-08-19 09:23 | Outpatient (CLI) | payer MEDICARE, OTHER ==
[2023-08-19 14:09] LABS: ALBUMIN 4.2 g/dL (3.2-5.5); ALBUMIN/GLOBULIN RATIO 1.4 (1.0-2.2); ALKALINE PHOSPHATASE 44 IU/L (42-121); ALT ALANINE AMINOTRANSFERASE 13 IU/L (10-60); AST ASPARTATE AMINOTRANSFERASE 15 IU/L (10-42); BILIRUBIN,TOTAL 0.5 mg/dL (0.2-1.0); BUN - BLOOD UREA NITROGEN 23 mg/dL (6-20); CALCIUM 9.5 mg/dL (8.5-10.3); CARBON DIOXIDE - CO2 34 mmol/L (21-32); CHLORIDE 102 mmol/L (101-111); CHOL/HDL RATIO 3.4 (<4.4); CHOLESTEROL 170 mg/dL; GFR - MDRD 53 (>89); GLUCOSE 106 mg/dL (74-104); HDL CHOLESTEROL 50 mg/dL; LDL CHOLESTEROL,CALCULATED 86 mg/dL; LDL/HDL RATIO 1.7 (<4.4); POTASSIUM 3.5 mmol/L (3.5-4.5); SODIUM 143 mmol/L (135-145); TOTAL PROTEIN 7.1 g/dL (6.4-8.9); TRIGLYCERIDES 170 mg/dL (48-352); VLDL CHOLESTEROL 34 mg/dL
== END 2023-08-19 09:24 | disposition home or self-care (01) ==
LOC: LAB.N 09:23
PROVIDERS: ATTEND Physician Assistant Medical
DX: E78.5 Hyperlipidemia, unspecified (principal)
CPT/HCPCS: 36415; 80053; 80061; 83721

== ENCOUNTER 2024-02-06 10:03 | Outpatient (CLI) | payer MEDICARE, OTHER ==
[2024-02-06 12:52] LABS: BASOPHILS # (AUTO) 0.1 10^3/uL (0.0-0.1); BASOPHILS % (AUTO) 0.6 %; EOSINOPHILS # (AUTO) 0.5 10^3/uL (0.0-0.7); EOSINOPHILS % (AUTO) 5.9 %; HCT - HEMATOCRIT 44.6 % (37.0-47.0); HGB - HEMOGLOBIN 14.2 g/dL (12.0-16.0); LYMPHOCYTES # (AUTO) 1.2 10^3/uL (1.5-3.5); LYMPHOCYTES % (AUTO) 14.5 %; MEAN CORPUSCULAR HGB CONC 31.8 g/dL (32.0-36.0); MEAN PLATELET VOLUME 10.7 fL (7.9-10.8); MONOCYTES # (AUTO) 0.6 10^3/uL (0.0-1.0); MONOCYTES % (AUTO) 7.4 %; NEUTROPHILS # (AUTO) 5.7 10^3/uL (1.5-6.6); NEUTROPHILS % (AUTO) 71.2 %; PLT - PLATELET COUNT 194 10^3/uL (130-450); RED CELL DISTRIBUTION WIDTH 12.9 % (12.0-15.0)
[2024-02-06 13:40] LABS: ALBUMIN 4.5 g/dL (3.2-5.5); ALBUMIN/GLOBULIN RATIO 1.8 (1.0-2.2); ALKALINE PHOSPHATASE 45 IU/L (42-121); ALT ALANINE AMINOTRANSFERASE 17 IU/L (10-60); AST ASPARTATE AMINOTRANSFERASE 18 IU/L (10-42); BILIRUBIN,TOTAL 0.5 mg/dL (0.2-1.0); BUN - BLOOD UREA NITROGEN 21 mg/dL (6-20); CALCIUM 9.8 mg/dL (8.5-10.3); CARBON DIOXIDE - CO2 34 mmol/L (21-32); CHLORIDE 102 mmol/L (101-111); CHOL/HDL RATIO 3.2 (<4.4); CHOLESTEROL 175 mg/dL; GFR - MDRD 53 (>89); GLUCOSE 115 mg/dL (74-104); HDL CHOLESTEROL 55 mg/dL; LDL CHOLESTEROL,CALCULATED 83 mg/dL; LDL/HDL RATIO 1.5 (<4.4); POTASSIUM 3.4 mmol/L (3.5-4.5); SODIUM 142 mmol/L (135-145); TRIGLYCERIDES 187 mg/dL; VLDL CHOLESTEROL 37 mg/dL
== END 2024-02-06 10:04 | disposition home or self-care (01) ==
LOC: LAB.N 10:03
PROVIDERS: ATTEND Physician Assistant Medical
DX: E78.5 Hyperlipidemia, unspecified (principal); K21.9 Gastro-esophageal reflux disease without esophagitis
CPT/HCPCS: 36415; 80053; 80061; 83721; 85025

== ENCOUNTER 2024-02-29 11:32 | Outpatient (CLI) | payer MEDICARE, OTHER | END 2024-02-29 11:33 | disposition home or self-care (01) | LOC: DI.N 11:32 | DX: Z53.9 Procedure and treatment not carried out, unspecified reason (principal) ==